=== PATIENT | female | born 1985 | race Caucasian/White ===

== ENCOUNTER 2017-01-26 10:07 | Emergency (ER) | payer BC ==
[~2017-01-26] VITALS: Ht 157.5 cm; Wt 59.0 kg
[2017-01-26 10:10] VITALS: BP 140/98; PULSE 116; RESP 20; TEMP 97.1; O2SAT 98
--- NOTE | 2017-01-26 10:21 | NUR ---
BROUGHT BACK TO BED #7 AND WILL ASSUME CARE.
--- NOTE | 2017-01-26 10:28 | NUR ---
PT STATES SHE WAS SEEN YESTERDAY AT [facility]RGENT [facility]ARE AND TOLD PROBABLE MISCARRIAGE. NOW WITH DARK BLOOD NOTED FROM VAGINA. DENIES ANY CRAMPING.
--- NOTE | 2017-01-26 10:30 | NUR ---
Pelvic exam performed by DR YOUNGBLOOD with NIKI QUINTEROS RN at bedside for entire examination. Patient tolerated procedure WELL. Patient assisted to position of comfort after examination.
--- NOTE | 2017-01-26 11:04 | NUR ---
TAKEN TO RADIOLOGY VIA WHEELCHAIR
[2017-01-26 11:12] LABS: BASOPHILS # (AUTO) 0.1 K/uL (0.0-0.2); BASOPHILS % (AUTO) 0.9 % (0.0-2.0); EOSINOPHILS # (AUTO) 0.9 K/uL (0.0-0.4); EOSINOPHILS % (AUTO) 9.7 % (0.0-4.0); HEMATOCRIT 41.7 % (36-48); HEMOGLOBIN 14.1 g/dL (12.0-16.0); LYMPHOCYTES # (AUTO) 2.1 K/uL (1.0-5.5); LYMPHOCYTES % (AUTO) 22.3 % (20.5-51.5); MEAN CORPUSCULAR HEMOGLOBIN 28 pg (27-31); MEAN CORPUSCULAR HGB CONC 34 % (32-36); MEAN CORPUSCULAR VOLUME 83 fL (79.0-98.0); MONOCYTES # (AUTO) 0.5 K/uL (0.0-1.0); MONOCYTES % (AUTO) 5.4 % (1.7-9.3); NEUTROPHILS # (AUTO) 5.8 K/uL (1.8-7.7); NEUTROPHILS % (AUTO) 61.7 % (40.0-70.0); PLATELET COUNT (AUTO) 326 K/uL (130-430); RED BLOOD CELL COUNT(AUTO) 5.05 MIL/uL (4.2-6.2); RED CELL DISTRIBUTION WIDTH 12.2 % (9.0-15.0); WHITE BLOOD COUNT (AUTO) 9.4 K/uL (4.8-10.8)
[2017-01-26 11:19] LABS: CREATININE 0.68 mg/dL (0.55-1.30); POTASSIUM 3.5 mmol/L (3.5-5.1)
--- NOTE | 2017-01-26 11:38 | NUR ---
DR YOUNGBLOOD SPEAKING WITH PT RE: RESULTS OF TESTING
[2017-01-26 11:43] LABS: ALBUMIN 3.7 g/dL (3.4-4.8); TOTAL BILIRUBIN 0.4 mg/dL (0.0-1.0); TOTAL PROTEIN, SERUM 7.1 g/dL (6.4-8.3)
--- NOTE | 2017-01-26 11:57 | NUR ---
Patient given written and verbal discharge instructions and verbalizes understanding. ER MD discussed with patient the results and treatment provided. Given copies of tests performed in ER. Patient in stable condition. ID arm band removed. Rx of NONE given. Patient educated on pain management and to follow up with PMD. Pain Scale 0/10. Opportunity for questions provided and answered.
== END 2017-01-26 11:56 | disposition home or self-care (01) ==
LOC: SED 10:07
DX: O20.0 Threatened abortion (principal); R03.0 Elevated blood-pressure reading, without diagnosis of hypertension; Z3A.01 Less than 8 weeks gestation of pregnancy
CPT/HCPCS: 36415; 76801; 76817; 80053; 84702-TC; 85025; 86900; 86901; 99285